=== PATIENT | female | born 1960 | race Two or more races ===

== ENCOUNTER → 2017-11-18 | Outpatient (CLI) | payer OTHER | END | disposition home or self-care (01) | LOC: HKI 10:40 | DX: R22.41 Localized swelling, mass and lump, right lower limb (principal); M32.9 Systemic lupus erythematosus, unspecified | CPT/HCPCS: Z7500 ==

== ENCOUNTER 2018-01-22 15:10 | Emergency (ER) | payer OTHER | END 2018-01-22 17:10 | disposition home or self-care (01) | LOC: FTE 15:10 | DX: L92.9 Granulomatous disorder of the skin and subcutaneous tissue, unspecified (principal) | CPT/HCPCS: 99282; Z7502 ==

== ENCOUNTER → 2018-01-27 | Outpatient (CLI) | payer OTHER | END | disposition home or self-care (01) | LOC: HKI 10:02 | DX: E83.59 Other disorders of calcium metabolism (principal); M32.9 Systemic lupus erythematosus, unspecified | CPT/HCPCS: Z7500 ==

== ENCOUNTER → 2018-03-27 | Outpatient (CLI) | payer OTHER | END | disposition home or self-care (01) | LOC: HKI 12:11 | DX: M25.862 Other specified joint disorders, left knee (principal); M32.9 Systemic lupus erythematosus, unspecified; E83.59 Other disorders of calcium metabolism | CPT/HCPCS: Z7500 ==